=== PATIENT | female | born 1980 | race Caucasian/White ===

== ENCOUNTER 2016-10-12 10:59 | Emergency (ER) | payer OTHER ==
[~2016-10-12] VITALS: Ht 170.2 cm; Wt 86.2 kg
[~2016-10-12 10:59] MED LIST: COLA100C PO; MOM30SS PO; MOTR200T44 PO; PRENTAB40 PO; TYLE167L PO
--- NOTE | 2016-10-12 12:29 | REP ---
LEFT HUMERUS: Two views. HISTORY: Injury in a fall. FINDINGS: Two views of the left humerus demonstrate normal bones, joints, and soft tissues. No fracture or subluxation is seen. IMPRESSION: No fracture noted. Signed by Yan Bradley MD 10/12/2016 01:43 P
--- NOTE | 2016-10-12 12:30 | REP ---
Left knee series: Five views. History: Injury in a fall. Findings: Five views of the left knee demonstrate normal bones, joints, and soft tissues. No fracture or subluxation is seen. Impression: Negative views of the left knee. Signed by Yan Bradley MD 10/12/2016 01:43 P
[2016-10-12 12:44] LABS: ANION GAP 12 MEQ/L (8-16); BLOOD UREA NITROGEN 6 MG/DL (7-18); CALCIUM LEVEL 9.2 MG/DL (8.5-10.1); CARBON DIOXIDE LEVEL 22 MEQ/L (21-32); CHLORIDE LEVEL 104 MEQ/L (98-107); CREATININE FOR GFR 0.52 MG/DL (0.55-1.02); GLOMERULAR FILTRATION RATE > 60.0 (>60); GLUCOSE, FASTING 74 MG/DL (70-105); POTASSIUM SERUM 3.7 MEQ/L (3.5-5.1); SODIUM LEVEL 138 MEQ/L (136-145)
[2016-10-12 12:48] LABS: BASO # 0.1 K/mm3 (0.0-0.2); BASO % 0.7 % (0.0-1.0); EOS # 0.1 K/mm3 (0.0-0.50); EOS % 0.5 % (0.0-3.0); LARGE UNSTAINED CELL # 0.2 K/mm3 (0.0-0.4); LARGE UNSTAINED CELL % 1.2 % (0.0-4.0); LYMPH # 1.1 K/mm3 (1.5-4.5); LYMPH % 7.2 % (24.0-44.0); MEAN CORPUSCULAR HEMOGLOBIN 29.8 pg (27.0-33.0); MEAN CORPUSCULAR HGB CONC 35.7 g/dl (32.0-36.5); MEAN CORPUSCULAR VOLUME 83.6 fl (80.0-96.0); MONO # 0.8 K/mm3 (0.0-0.8); MONO % 5.5 % (0.0-5.0); NEUTROPHILS # 12.8 K/mm3 (1.8-7.7); NEUTROPHILS % 84.9 % (36.0-66.0); PLATELET COUNT, AUTOMATED 268 k/mm3 (150-450); RED CELL DISTRIBUTION WIDTH 12.9 % (11.5-14.5); WHITE BLOOD COUNT 15.1 K/mm3 (4.0-10.0)
--- NOTE | 2016-10-12 13:02 | REP ---
Left forearm: Two views. History: Injury in a fall. Findings: AP and lateral views of the left forearm demonstrate irregularity in the radial head along its articular margin raising question of a radial head fracture. Elbow views are recommended. No other radial or ulnar fracture is seen. Impression: Suspect intra-articular fracture of the proximal radial head. Recommend elbow views. Signed by Yan Bradley MD 10/12/2016 01:43 P
--- NOTE | 2016-10-12 13:13 | REP ---
LIMITED OB ULTRASOUND: Real-time sonographic evaluation of the gravid uterus performed. There is a single living intrauterine gestation with an estimated gestational age of 32 weeks 2 days, EDC 12/05/2016. Cervix is closed and measures 3.4 cm in length. heart rate 143 beats per minute. Amniotic fluid within normal limits, amniotic fluid index (OLIVIER) 13.8 within normal range of 8.5 - 24.3. S/d ratio 2.84 is within normal range. RI 0.65 within normal range. position is vertex. Placenta is posterior with no previa or abruption. IMPRESSION: No evidence of placenta previa or abruption. Signed by Caleb Espinal MD 10/12/2016 05:04 P
--- NOTE | 2016-10-12 13:27 | REP ---
Left elbow series: Four views. History: Injury in a fall. Findings: There are positive anterior and posterior fat pad signs at the elbow on the lateral radiograph. Four views of the elbow demonstrate an intra-articular fracture of the proximal radial head. This is slightly depressed. No ulnar fracture is seen. Oblique views demonstrate the fracture as well as a possible intra-articular bone fragment in the radial capitellar articulation. Impression: Slightly depressed intra-articular radial head fracture with hemarthrosis. Possible intra-articular bone fragment. Signed by Yan Bradley MD 10/12/2016 01:44 P
--- NOTE | 2016-10-12 13:38 | EDDOCDS ---
Physician Documentation [facility] Name: Lisa Rider Age: 36 yrs Sex: Female : 1980 Arrival Date: 10/12/2016 Time: 10:59 Bed 3 Private MD: No Pcp Disposition: 10/12/16 13:13 Hospitalization ordered by Norma Hill for Inpatient Admission. Preliminary diagnosis are related conditions, unspecified - fall, rule out placental abruption, Fall (on)(from) sidewalk curb - with left radial head fracture - with intraarticular loose, Contusion of left knee, Contusion of left shoulder, Abrasion of knee - left. - Bed requested for Admit. - Status is Inpatient Admission. js13 - Condition is Stable. - Problem is new. - Symptoms are unchanged. Historical: - Allergies: No known drug Allergies; - Home Meds: 1. Vitamin 27-0.8 mg Oral tab 1 tab once daily 2. Colace 100 mg oral cap 1 cap 2 times per day 3. ranitidine HCl 75 mg Oral tab 1 tab once daily - PMHx: none; - PSHx: cone biopsy; - Social history: Smoking status: Patient uses tobacco products, light tobacco smoker. No barriers to communication noted, The patient speaks fluent Solomon Islander, Speaks appropriately for age. - Family history: Not pertinent. - : The pt / caregiver states he / she is not on anticoagulants. Home medication list is obtained from the patient. - Exposure Risk Screening:: None identified. 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 7 in. (170.18 cm); Pain 8/10; 11:29 BP 130 / 74; Pulse 94; Resp 20; Pulse Ox 99% ; Pain 8/10; jlf 11:43 Pulse 82 MON; Pulse Ox 97% ; kc3 11:45 BP 135 / 81 (auto/); kc3 12:00 BP 111 / 75 (auto/); kc3 12:00 Pulse 90 MON; Pulse Ox 99% ; kc3 12:48 BP 116 / 70 (auto/); kc3 12:48 Pulse 91 MON; Pulse Ox 99% ; kc3 13:03 BP 113 / 71 (auto/); kc3 13:04 Pulse 89 MON; Pulse Ox 98% ; kc3 13:28 BP 102 / 59; Pulse 86; Resp 18; Temp 98.1(O); Pulse Ox 98% on R/A; Pain 7/10; kc3 11:02 Body Mass Index 29.76 (86.18 kg, 170.18 cm) jrd MDM: 11:24 Heart Tones ordered. ml 11:37 IV Saline Lock ordered. ml 11:38 Director Data Architecture/Pulse Ox/q 15 min VS ordered. ml 11:38 Rhythm Strip to chart ordered. ml 11:38 CBC with Diff Ordered. EDMS 11:38 MED Profile Ordered. EDMS 11:38 Type & Screen Ordered. EDMS 11:40 Forearm (radius/ulna) Ordered. EDMS 11:40 Knee, Complete Ordered. EDMS 11:41 Humerus Ordered. EDMS 11:43 NS 0.9% 1000 ml IV at bolus once ordered. ml 11:45 ECG WITH READING ER PHYS+CARDIAG ordered. EDMS 11:46 Fibrinogen Ordered. EDMS 11:46 Kleihauer Betke Ordered. EDMS 11:53 Obs. Limited, OLIVIER US Ordered. EDMS 12:27 Elbow, Complete Ordered. EDMS 13:04 Misc. Nursing Order ordered. ml 13:18 Financial registration complete. mm15 13:28 [facility] Payment Agreement was scanned into [employer] and attached to record. mm15 Administered Medications: 12:18 Drug: NS 0.9% 1000 ml [sodium chloride 0.9 % intravenous solution] Route: IV; Rate: kc3 bolus; Site: right antecubital; Signatures: Dispatcher [employer] EDMS Rodrick Tony MD MD ml Jessie Long RN RN hs1 Deena Pizano,VINOD RN js13 Oniel Hayes mm15 Becca Coleman,VINOD RN kc3 The chart was reviewed and I authenticate all verbal orders and agree with the evaluation and treatment provided.Corrections: (The following items were deleted from the chart) 11:42 11:38 Shoulder, complete+XR ordered. EDMS EDMS 11:53 11:48 US 1ST TRI EA ADDITIONAL GEST+US ordered. EDMS EDMS Attachments: 13:28 [facility] Payment Agreement mm15 MTDD
--- NOTE | 2016-10-12 13:38 | EDDOCDS ---
Nurse's Notes [facility] [place] Name: Lisa Rider Age: 36 yrs Sex: Female : 1980 Arrival Date: 10/12/2016 Time: 10:59 Bed 3 Private MD: No Pcp Diagnosis: related conditions, unspecified-fall, rule out placental abruption;Fall (on)(from) sidewalk curb-with left radial head fracture - with intraarticular loose;Contusion of left knee;Contusion of left shoulder;Abrasion of knee-left Presentation: 10/12 11:04 Presenting complaint: Patient states: tripped over baling twine while in [employer] Patient hs1 states fell from a standing height onto concrete floor. Patient states fell onto left wrist and shoulder where most of pain is. Also reporting pain in left knee and ankle as well as right elbow. Patient states she is 33 weeks . Denies cramping and reports feeling baby move since accident. Adult Sepsis Screening: The patient does not have new or worsening altered mentation. Patient's respiratory rate is less than 22. Systolic blood pressure is greater than 100. Patient has a qSOFA score of 0- Negative Sepsis Screen. Suicide/Homicide risk assessment- the patient denies having any suicidal and/or homicidal ideations and does not present with any other emotional, behavioral or mental health complaints. Status: Patient is not a support services specialist or dependent. Transition of care: patient was not received from another setting of care. 11:04 Acuity: ANGEL LUIS Level 3 hs1 11:04 Method Of Arrival: Walkin/Carried/Asstd hs1 Triage Assessment: 11:10 General: Appears in no apparent distress, Behavior is appropriate for age, cooperative. hs1 Pain: Location: right elbow, left tricep, left elbow, left knee and anterior aspect of left ankle Pain currently is 8 out of 10 on a pain scale. Pt Declines HIV testing. Musculoskeletal: Range of motion limited in left shoulder and left elbow. ACTUARIAL TRAINEE: 12:25 Verified kc3 Historical: - Allergies: No known drug Allergies; - Home Meds: 1. Vitamin 27-0.8 mg Oral tab 1 tab once daily 2. Colace 100 mg oral cap 1 cap 2 times per day 3. ranitidine HCl 75 mg Oral tab 1 tab once daily - PMHx: none; - PSHx: cone biopsy; - Social history: Smoking status: Patient uses tobacco products, light tobacco smoker. No barriers to communication noted, The patient speaks fluent Thai, Speaks appropriately for age. - Family history: Not pertinent. - : The pt / caregiver states he / she is not on anticoagulants. Home medication list is obtained from the patient. - Exposure Risk Screening:: None identified. Screenin:32 Screening information is obtained from the patient. Fall risk: At risk due to prior [facility] history of falls, The following interventions are performed due to a positive Fall Risk Screen: Fall Risk is added to Special Handling on the patient Summary Screen. A Fall Risk Bracelet was applied to the patient. Side Rails are placed in the up position. A Call Donovan is given with instruction to call for help when getting out of bed. Fall Alert bracelet is placed on the patient. Assistance ADL's: requires no assistance with activities of daily living. Abuse/DV Screen: The patient / caregiver reports he/she is: not in a situation that causes fear, pain or injury. Nutritional screening: No deficits noted. Advance Directives: Currently, there is no health care proxy. home support is adequate. Assessment: 11:30 General: Appears in no apparent distress, uncomfortable, Behavior is appropriate for kc3 age, cooperative. Pain: Location: left arm and left knee Pain currently is 8 out of 10 on a pain scale. Neurological: Level of Consciousness is awake, alert, obeys commands, Oriented to person, place, time. Cardiovascular: Rhythm is sinus rhythm Chest pain is denied. Respiratory: Respiratory effort is even, unlabored. Derm: Skin is pink, warm & dry. abrasion noted to left knee. Musculoskeletal: Circulation, motion, and sensation intact Range of motion limited in left shoulder. 12:24 General: Appears in no apparent distress, comfortable, Behavior is appropriate for age, kc3 cooperative. Pain: Location: left arm. Neurological: No deficits noted. Cardiovascular: Rhythm is sinus rhythm. Respiratory: Respiratory effort is even, unlabored. Derm: Skin is pink, warm & dry. 13:14 General: Appears in no apparent distress, comfortable, Behavior is appropriate for age, kc3 cooperative. Pain: Location: left shoulder. Neurological: Level of Consciousness is awake, alert, obeys commands, Oriented to person, place, time. Cardiovascular: Rhythm is sinus rhythm. Respiratory: Respiratory effort is even, unlabored. Derm: Skin is pink, warm & dry. Musculoskeletal: Circulation, motion, and sensation intact. Vital Signs: 11:02 BP 128 / 74 RA Sitting (auto/); Pulse 98; Resp 18; Temp 97.7(O); Pulse Ox 99% on R/A; jrd Weight 86.18 kg (R); Height 5 ft. 7 in. (170.18 cm); Pain 8/10; 11:29 BP 130 / 74; Pulse 94; Resp 20; Pulse Ox 99% ; Pain 8/10; jlf 11:43 Pulse 82 MON; Pulse Ox 97% ; kc3 11:45 BP 135 / 81 (auto/); kc3 12:00 BP 111 / 75 (auto/); kc3 12:00 Pulse 90 MON; Pulse Ox 99% ; kc3 12:48 BP 116 / 70 (auto/); kc3 12:48 Pulse 91 MON; Pulse Ox 99% ; kc3 13:03 BP 113 / 71 (auto/); kc3 13:04 Pulse 89 MON; Pulse Ox 98% ; kc3 13:28 BP 102 / 59; Pulse 86; Resp 18; Temp 98.1(O); Pulse Ox 98% on R/A; Pain 7/10; kc3 11:02 Body Mass Index 29.76 (86.18 kg, 170.18 cm) [facility] Vitals: 11:02 Log In Time: October 12, 2016 at 10:59. jrd 11:30 Heart Tones 145BPM. kc3 ED Course: 11:00 Patient visited by Yao Rodriguez PCA. jrd 11:00 Patient moved to Waiting jrd 11:01 No Pcp is Private Physician. jrd 11:02 Patient visited by Yao Rodriguez PCA. jrd 11:07 Triage Initiated hs1 11:17 Becca Coleman,RN is Primary Nurse. ml6 11:17 Patient moved to 3 ml6 11:29 Patient visited by Michelle Suarez PCA. jlf 11:29 Patient visited by Michelle Suarez PCA. jlf 11:32 Patient visited by Becca Coleman,VINOD. kc3 11:32 The patient / caregiver is instructed regarding the plan of care and ED course. kc3 11:36 Rodrick Tony MD is Attending Physician. ml 11:36 Patient visited by Rodrick Tony MD. ml 11:56 Patient moved to Ultrasound am10 12:10 Patient moved to 3 am10 12:16 Patient visited by Michelle Suarez PCA. jlf 12:16 Patient visited by Michelle Suarez PCA. jlf 12:16 EKG done. (by ED staff). Reviewed by Rodrick Tony MD. jlf 12:18 Type & Screen Sent. kc3 12:24 Inserted saline lock: 18 gauge in right antecubital area and blood collected. The kc3 patient tolerated the procedure well. Labs drawn. (by ED staff). Sent per order to lab. 12:25 Patient visited by Becca Coleman RN. kc3 12:58 Humerus Returned. EDMS 12:58 Knee, Complete Returned. EDMS 13:08 Patient visited by Michelle Suarez PCA. jlf 13:10 Norma Hill MD is Hospitalizing Provider. ml 13:12 Patient visited by Michelle Suarez PCA. jlf 13:12 Sling applied to left arm. Patient with positive distal sensation and brisk distal jlf capillary refill after application. 13:28 [facility] Payment Agreement was scanned into [employer] and attached to record. mm15 13:29 No procedures done that require assistance. kc3 13:32 Forearm (radius/ulna) Returned. EDMS 13:32 Obs. Limited, OLIVIER US Returned. EDMS 13:32 Elbow, Complete Returned. EDMS Administered Medications: 12:18 Drug: NS 0.9% 1000 ml [sodium chloride 0.9 % intravenous solution] Route: IV; Rate: kc3 bolus; Site: right antecubital; Order Results: Lab Order: CBC with Diff; SPEC'M 10/12/16 12:04 Test: WHITE BLOOD COUNT; Value: 15.1; Range: 4.0-10.0; Abnormal: Above high normal; Units: K/mm3; Status: F Test: RED BLOOD COUNT; Value: 4.16; Range: 4.00-5.40; Units: M/mm3; Status: F Test: HEMOGLOBIN; Value: 12.4; Range: 12.0-16.0; Units: g/dl; Status: F Test: HEMATOCRIT; Value: 34.8; Range: 36.0-47.0; Abnormal: Below low normal; Units: %; Status: F Test: MEAN CORPUSCULAR VOLUME; Value: 83.6; Range: 80.0-96.0; Units: fl; Status: F Test: MEAN CORPUSCULAR HEMOGLOBIN; Value: 29.8; Range: 27.0-33.0; Units: pg; Status: F Test: MEAN CORPUSCULAR HGB CONC; Value: 35.7; Range: 32.0-36.5; Units: g/dl; Status: F Test: RED CELL DISTRIBUTION WIDTH; Value: 12.9; Range: 11.5-14.5; Units: %; Status: F Test: PLATELET COUNT, AUTOMATED; Value: 268; Range: 150-450; Units: k/mm3; Status: F Test: NEUTROPHILS %; Value: 84.9; Range: 36.0-66.0; Abnormal: Above high normal; Units: %; Status: F Test: LYMPH %; Value: 7.2; Range: 24.0-44.0; Abnormal: Below low normal; Units: %; Status: F Test: MONO %; Value: 5.5; Range: 0.0-5.0; Abnormal: Above high normal; Units: %; Status: F Test: EOS %; Value: 0.5; Range: 0.0-3.0; Units: %; Status: F Test: BASO %; Value: 0.7; Range: 0.0-1.0; Units: %; Status: F Test: LARGE UNSTAINED CELL %; Value: 1.2; Range: 0.0-4.0; Units: %; Status: F Test: NEUTROPHILS #; Value: 12.8; Range: 1.8-7.7; Abnormal: Above high normal; Units: K/mm3; Status: F Test: LYMPH #; Value: 1.1; Range: 1.5-4.5; Abnormal: Below low normal; Units: K/mm3; Status: F Test: MONO #; Value: 0.8; Range: 0.0-0.8; Units: K/mm3; Status: F Test: EOS #; Value: 0.1; Range: 0.0-0.50; Units: K/mm3; Status: F Test: BASO #; Value: 0.1; Range: 0.0-0.2; Units: K/mm3; Status: F Test: LARGE UNSTAINED CELL #; Value: 0.2; Range: 0.0-0.4; Units: K/mm3; Status: F Lab Order: MED Profile; SPEC'M 10/12/16 12:04 Test: GLUCOSE, FASTING; Value: 74; Range: 70-105; Units: MG/DL; Status: F Test: BLOOD UREA NITROGEN; Value: 6; Range: 7-18; Abnormal: Below low normal; Units: MG/DL; Status: F Test: CREATININE FOR GFR; Value: 0.52; Range: 0.55-1.02; Abnormal: Below low normal; Units: MG/DL; Status: F Test: GLOMERULAR FILTRATION RATE; Value: > 60.0; Range: >60; Status: F Test: SODIUM LEVEL; Value: 138; Range: 136-145; Units: MEQ/L; Status: F Test: POTASSIUM SERUM; Value: 3.7; Range: 3.5-5.1; Units: MEQ/L; Status: F Test: CHLORIDE LEVEL; Value: 104; Range: 98-107; Units: MEQ/L; Status: F Test: CARBON DIOXIDE LEVEL; Value: 22; Range: 21-32; Units: MEQ/L; Status: F Test: ANION GAP; Value: 12; Range: 8-16; Units: MEQ/L; Status: F Test: CALCIUM LEVEL; Value: 9.2; Range: 8.5-10.1; Units: MG/DL; Status: F Test Note: ; Units are mL/min/1.73 m2 Chronic Kidney Disease Staging per NKF: Stage I & II GFR >=60 Normal to Mildly Decreased Stage III GFR 30-59 Moderately Decreased Stage IV GFR 15-29 Severely Decreased Stage V GFR <15 Very Little GFR Left ESRD GFR <15 on HELPER DRIVER Lab Order: Fibrinogen; SPEC'M 10/12/16 12:04 Test: FIBRINOGEN; Value: 470; Range: 221-452; Abnormal: Above high normal; Units: MG/DL; Status: F Radiology Order: Forearm (radius/ulna) Test: Forearm (radius/ulna) REASON FOR EXAMINATION: fall, 33 wks pregn; Left forearm: Two views.; ; History: Injury in a fall.; ; Findings: AP and lateral views of the left forearm demonstrate irregularity in; the radial head along its articular margin raising question of a radial head; fracture. Elbow views are recommended. No other radial or ulnar fracture is; seen.; ; Impression:; ; Suspect intra-articular fracture of the proximal radial head. Recommend elbow; views.; ; ; ; ; Unreviewed; Radiology Order: Knee, Complete Test: Knee, Complete REASON FOR EXAMINATION: 33 wks preg, fall; Left knee series: Five views.; ; History: Injury in a fall.; ; Findings: Five views of the left knee demonstrate normal bones, joints, and soft; tissues. No fracture or subluxation is seen.; ; Impression:; ; Negative views of the left knee.; ; ; ; ; Unreviewed; Radiology Order: Humerus Test: Humerus REASON FOR EXAMINATION: fall 33 wks pregn; LEFT HUMERUS:; ; Two views.; ; HISTORY: Injury in a fall.; ; FINDINGS: Two views of the left humerus demonstrate normal bones, joints, and; soft tissues. No fracture or subluxation is seen.; ; IMPRESSION:; No fracture noted.; ; ; ; ; Unreviewed; Radiology Order: Obs. Limited, OLIVIER US Test: Obs. Limited, OLIVIER US REASON FOR EXAMINATION: fall, rule palental abruption; LIMITED OB ULTRASOUND:; ; Real-time sonographic evaluation of the gravid uterus performed. There is a; single living intrauterine gestation with an estimated gestational age of 32; weeks 2 days, EDC 12/05/2016. Cervix is closed and measures 3.4 cm in length.; heart rate 143 beats per minute. Amniotic fluid within normal limits,; amniotic fluid index (OLIVIER) 13.8 within normal range of 8.5 - 24.3. S/d ratio; 2.84 is within normal range. RI 0.65 within normal range. position is; vertex. Placenta is posterior with no previa or abruption.; ; IMPRESSION:; No evidence of placenta previa or abruption.; ; Unreviewed; Radiology Order: Elbow, Complete Test: Elbow, Complete REASON FOR EXAMINATION: ro pain; Left elbow series: Four views.; ; History: Injury in a fall.; ; Findings: There are positive anterior and posterior fat pad signs at the elbow; on the lateral radiograph. Four views of the elbow demonstrate an; intra-articular fracture of the proximal radial head. This is slightly; depressed. No ulnar fracture is seen. Oblique views demonstrate the fracture as; well as a possible intra-articular bone fragment in the radial capitellar; articulation.; ; Impression:; ; Slightly depressed intra-articular radial head fracture with hemarthrosis.; Possible intra-articular bone fragment.; ; ; ; ; Unreviewed; Outcome: 13:13 Decision to Hospitalize by Provider. 13:16 Admission hand-off: Report called to VINOD Uribe on L&D. 3 13:29 Discharge Assessment: patient administered narcotics - no. The following High Risk [facility] Discharge criteria are identified: None. Admitted to L & D, accompanied by tech, via wheelchair, with chart. Condition: stable. Property :Personal belongings accompany Pt. 13:29 No special radiology studies were completed. 3 13:36 Patient left the ED. js13 Signatures: Dispatcher [employer] EDMS Rodrick Tony MD MD ml Raina Sr am10 Young Murphy, RN RN ml6 Jessie Long RN RN hs1 Denea Pizano,RN RN js13 Oniel Hayes mm15 Michelle Suarez, ENERGY AUDIT ADVISOR ENERGY AUDIT ADVISOR Yao Nascimento, ENERGY AUDIT ADVISOR ENERGY AUDIT ADVISOR Becca Fontana,RN RN kc3 MTDD
[2016-10-12] MEDS ORDERED: RANI15TA PO (13:46)
[2016-10-12] MEDS ORDERED: PREN29CH2 PO (13:46)
[2016-10-12] MEDS ORDERED: OXYC1TAB23 PO (16:23)
--- NOTE | 2016-10-12 17:38 | ECGEPIP ---
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
--- NOTE | 2016-10-14 14:37 | EDDOCDS ---
Physician Documentation [facility] Name: Lisa Rider Age: 36 yrs Sex: Female : 1980 Arrival Date: 10/12/2016 Time: 10:59 Bed 3 Private MD: No Pcp Disposition: 10/12 21:04 Critical Care:. ml Disposition: 10/12/16 13:13 Hospitalization ordered by Norma Hill for Inpatient Admission. Preliminary diagnosis are related conditions, unspecified - fall, rule out placental abruption, Fall (on)(from) sidewalk curb - with left radial head fracture - with intraarticular loose, Contusion of left knee, Contusion of left shoulder, Abrasion of knee - left. - Bed requested for Admit. - Status is Inpatient Admission. js13 - Condition is Stable. - Problem is new. - Symptoms are unchanged. Historical: - Allergies: No known drug Allergies; - Home Meds: 1. Vitamin 27-0.8 mg Oral tab 1 tab once daily 2. Colace 100 mg oral cap 1 cap 2 times per day 3. ranitidine HCl 75 mg Oral tab 1 tab once daily - PMHx: none; - PSHx: cone biopsy; - Social history: Smoking status: Patient uses tobacco products, light tobacco smoker. No barriers to communication noted, The patient speaks fluent Armenian, Speaks appropriately for age. - Family history: Not pertinent. - : The pt / caregiver states he / she is not on anticoagulants. Home medication list is obtained from the patient. - Exposure Risk Screening:: None identified. 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 7 in. (170.18 cm); Pain 8/10; 11:29 BP 130 / 74; Pulse 94; Resp 20; Pulse Ox 99% ; Pain 8/10; jlf 11:43 Pulse 82 MON; Pulse Ox 97% ; kc3 11:45 BP 135 / 81 (auto/); kc3 12:00 BP 111 / 75 (auto/); kc3 12:00 Pulse 90 MON; Pulse Ox 99% ; kc3 12:48 BP 116 / 70 (auto/); kc3 12:48 Pulse 91 MON; Pulse Ox 99% ; kc3 13:03 BP 113 / 71 (auto/); kc3 13:04 Pulse 89 MON; Pulse Ox 98% ; kc3 13:28 BP 102 / 59; Pulse 86; Resp 18; Temp 98.1(O); Pulse Ox 98% on R/A; Pain 7/10; kc3 11:02 Body Mass Index 29.76 (86.18 kg, 170.18 cm) jrd MDM: 11:24 Heart Tones ordered. ml 11:37 IV Saline Lock ordered. ml 11:38 Cold Food Packer/Pulse Ox/q 15 min VS ordered. ml 11:38 Rhythm Strip to chart ordered. ml 11:38 CBC with Diff Ordered. EDMS 11:38 MED Profile Ordered. EDMS 11:38 Type & Screen Ordered. EDMS 11:40 Forearm (radius/ulna) Ordered. EDMS 11:40 Knee, Complete Ordered. EDMS 11:41 Humerus Ordered. EDMS 11:43 NS 0.9% 1000 ml IV at bolus once ordered. ml 11:45 ECG WITH READING ER PHYS+CARDIAG ordered. EDMS 11:46 Fibrinogen Ordered. EDMS 11:46 Kleihauer Betke Ordered. EDMS 11:53 Obs. Limited, OLIVIER US Ordered. EDMS 12:27 Elbow, Complete Ordered. EDMS 13:04 Misc. Nursing Order ordered. ml 13:18 Financial registration complete. mm15 13:28 [facility] [place] Agreement was scanned into [employer] and attached to record. mm15 13:56 ANTIBODY IDENTIFICATION Ordered. EDMS 10/13 09:54 T-Sheet-- Draft Copy was scanned into [employer] and attached to record. gb 09:54 ECG/EKG was scanned into [employer] and attached to record. gb 09:54 Radiology Report was scanned into [employer] and attached to record. gb Administered Medications: 10/12 12:18 Drug: NS 0.9% 1000 ml [sodium chloride 0.9 % intravenous solution] Route: IV; Rate: kc3 bolus; Site: right antecubital; Critical Care Time: 21:04 Critical care time: Bedside Care: 60 minutes, Consultation: 10 minutes. Total time: 70 ml minutes Signatures: Dispatcher [employer] EDMS Rodrick Tony MD MD ml Tayler Silver, Reg Reg gb Jessie Long, RN RN hs1 Deena Pizano,VINOD RN js13 Oniel Hayes mm15 Becca Coleman,RN RN kc3 The chart was reviewed and I authenticate all verbal orders and agree with the evaluation and treatment provided.Corrections: (The following items were deleted from the chart) 11:42 11:38 Shoulder, complete+XR ordered. EDMS EDMS 11:53 11:48 US 1ST TRI EA ADDITIONAL GEST+US ordered. EDMS EDMS Attachments: 13:28 [facility] [place] Agreement mm15 10/13 09:54 T-Sheet-- Draft Copy gb 09:54 ECG/EKG gb Chart Complete MTDD
--- NOTE | 2016-10-14 14:37 | EDDOCDS ---
Nurse's Notes [facility] Name: Lisa Mao Age: 36 yrs Sex: Female : 1980 Arrival Date: 10/12/2016 Time: 10:59 Bed 3 Private MD: No Pcp Diagnosis: related conditions, unspecified-fall, rule out placental abruption;Fall (on)(from) sidewalk curb-with left radial head fracture - with intraarticular loose;Contusion of left knee;Contusion of left shoulder;Abrasion of knee-left Presentation: 10/12 11:04 Presenting complaint: Patient states: tripped over baling twine while in [place]. Patient hs1 states fell from a standing height onto concrete floor. Patient states fell onto left wrist and shoulder where most of pain is. Also reporting pain in left knee and ankle as well as right elbow. Patient states she is 33 weeks . Denies cramping and reports feeling baby move since accident. Adult Sepsis Screening: The patient does not have new or worsening altered mentation. Patient's respiratory rate is less than 22. Systolic blood pressure is greater than 100. Patient has a qSOFA score of 0- Negative Sepsis Screen. Suicide/Homicide risk assessment- the patient denies having any suicidal and/or homicidal ideations and does not present with any other emotional, behavioral or mental health complaints. Status: Patient is not a automotive service professional or dependent. Transition of care: patient was not received from another setting of care. 11:04 Acuity: ANGEL LUIS Level 3 hs1 11:04 Method Of Arrival: Walkin/Carried/Asstd hs1 Triage Assessment: 11:10 General: Appears in no apparent distress, Behavior is appropriate for age, cooperative. hs1 Pain: Location: right elbow, left tricep, left elbow, left knee and anterior aspect of left ankle Pain currently is 8 out of 10 on a pain scale. Pt Declines HIV testing. Musculoskeletal: Range of motion limited in left shoulder and left elbow. 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 Vitamin 27-0.8 mg Oral tab 1 tab once daily 2. Colace 100 mg oral cap 1 cap 2 times per day 3. ranitidine HCl 75 mg Oral tab 1 tab once daily - PMHx: none; - PSHx: cone biopsy; - Social history: Smoking status: Patient uses tobacco products, light tobacco smoker. No barriers to communication noted, The patient speaks fluent Tajik, Speaks appropriately for age. - Family history: Not pertinent. - : The pt / caregiver states he / she is not on anticoagulants. Home medication list is obtained from the patient. - Exposure Risk Screening:: None identified. Screenin:32 Screening information is obtained from the patient. Fall risk: At risk due to prior [facility] history of falls, The following interventions are performed due to a positive Fall Risk Screen: Fall Risk is added to Special Handling on the patient Summary Screen. A Fall Risk Bracelet was applied to the patient. Side Rails are placed in the up position. A Call Donovan is given with instruction to call for help when getting out of bed. Fall Alert bracelet is placed on the patient. Assistance ADL's: requires no assistance with activities of daily living. Abuse/DV Screen: The patient / caregiver reports he/she is: not in a situation that causes fear, pain or injury. Nutritional screening: No deficits noted. Advance Directives: Currently, there is no health care proxy. home support is adequate. Assessment: 11:30 General: Appears in no apparent distress, uncomfortable, Behavior is appropriate for kc3 age, cooperative. Pain: Location: left arm and left knee Pain currently is 8 out of 10 on a pain scale. Neurological: Level of Consciousness is awake, alert, obeys commands, Oriented to person, place, time. Cardiovascular: Rhythm is sinus rhythm Chest pain is denied. Respiratory: Respiratory effort is even, unlabored. Derm: Skin is pink, warm & dry. abrasion noted to left knee. Musculoskeletal: Circulation, motion, and sensation intact Range of motion limited in left shoulder. 12:24 General: Appears in no apparent distress, comfortable, Behavior is appropriate for age, kc3 cooperative. Pain: Location: left arm. Neurological: No deficits noted. Cardiovascular: Rhythm is sinus rhythm. Respiratory: Respiratory effort is even, unlabored. Derm: Skin is pink, warm & dry. 13:14 General: Appears in no apparent distress, comfortable, Behavior is appropriate for age, kc3 cooperative. Pain: Location: left shoulder. Neurological: Level of Consciousness is awake, alert, obeys commands, Oriented to person, place, time. Cardiovascular: Rhythm is sinus rhythm. Respiratory: Respiratory effort is even, unlabored. Derm: Skin is pink, warm & dry. Musculoskeletal: Circulation, motion, and sensation intact. Vital Signs: 11:02 BP 128 / 74 RA Sitting (auto/); Pulse 98; Resp 18; Temp 97.7(O); Pulse Ox 99% on R/A; jrd Weight 86.18 kg (R); Height 5 ft. 7 in. (170.18 cm); Pain 8/10; 11:29 BP 130 / 74; Pulse 94; Resp 20; Pulse Ox 99% ; Pain 8/10; jlf 11:43 Pulse 82 MON; Pulse Ox 97% ; kc3 11:45 BP 135 / 81 (auto/); kc3 12:00 BP 111 / 75 (auto/); kc3 12:00 Pulse 90 MON; Pulse Ox 99% ; kc3 12:48 BP 116 / 70 (auto/); kc3 12:48 Pulse 91 MON; Pulse Ox 99% ; kc3 13:03 BP 113 / 71 (auto/); kc3 13:04 Pulse 89 MON; Pulse Ox 98% ; kc3 13:28 BP 102 / 59; Pulse 86; Resp 18; Temp 98.1(O); Pulse Ox 98% on R/A; Pain 7/10; kc3 11:02 Body Mass Index 29.76 (86.18 kg, 170.18 cm) [facility] Vitals: 11:02 Log In Time: October 12, 2016 at 10:59. jrd 11:30 Heart Tones 145BPM. kc3 ED Course: 11:00 Patient visited by Yao Rodriguez PCA. jrd 11:00 Patient moved to Waiting jrd 11:01 No Pcp is Private Physician. jrd 11:02 Patient visited by Yao Rodriguez PCA. jrd 11:07 Triage Initiated hs1 11:17 Becca Coleman,RN is Primary Nurse. ml6 11:17 Patient moved to 3 ml6 11:29 Patient visited by Michelle Suarez PCA. jlf 11:29 Patient visited by Michelle Suarez PCA. jlf 11:32 Patient visited by Becca Coleman,VINOD. kc3 11:32 The patient / caregiver is instructed regarding the plan of care and ED course. kc3 11:36 Rodrick Tony MD is Attending Physician. ml 11:36 Patient visited by Rodrick Tony MD. ml 11:56 Patient moved to Ultrasound am10 12:10 Patient moved to 3 am10 12:16 Patient visited by Michelle Suarez PCA. jlf 12:16 Patient visited by Michelle Suarez PCA. jlf 12:16 EKG done. (by ED staff). Reviewed by Rodrick Tony MD. jlf 12:18 Type & Screen Sent. kc3 12:24 Inserted saline lock: 18 gauge in right antecubital area and blood collected. The kc3 patient tolerated the procedure well. Labs drawn. (by ED staff). Sent per order to lab. 12:25 Patient visited by Becca Coleman RN. kc3 12:58 Humerus Returned. EDMS 12:58 Knee, Complete Returned. EDMS 13:08 Patient visited by Michelle Suarez PCA. jlf 13:10 Norma Hill MD is Hospitalizing Provider. ml 13:12 Patient visited by Michelle Suarez PCA. jlf 13:12 Sling applied to left arm. Patient with positive distal sensation and brisk distal jlf capillary refill after application. 13:28 [facility] [place] Agreement was scanned into [employer] and attached to record. mm15 13:29 No procedures done that require assistance. kc3 13:32 Forearm (radius/ulna) Returned. EDMS 13:32 Obs. Limited, OLIVIER US Returned. EDMS 13:32 Elbow, Complete Returned. EDMS 17:50 EKG-ADULT Returned. EDMS 10/13 09:54 T-Sheet-- Draft Copy was scanned into [employer] and attached to record. gb 09:54 ECG/EKG was scanned into [employer] and attached to record. gb 09:54 Radiology Report was scanned into [employer] and attached to record. gb Administered Medications: 10/12 12:18 Drug: NS 0.9% 1000 ml [sodium chloride 0.9 % intravenous solution] Route: IV; Rate: kc3 bolus; Site: right antecubital; Order Results: Lab Order: CBC with Diff; SPEC'M 10/12/16 12:04 Test: WHITE BLOOD COUNT; Value: 15.1; Range: 4.0-10.0; Abnormal: Above high normal; Units: K/mm3; Status: F Test: RED BLOOD COUNT; Value: 4.16; Range: 4.00-5.40; Units: M/mm3; Status: F Test: HEMOGLOBIN; Value: 12.4; Range: 12.0-16.0; Units: g/dl; Status: F Test: HEMATOCRIT; Value: 34.8; Range: 36.0-47.0; Abnormal: Below low normal; Units: %; Status: F Test: MEAN CORPUSCULAR VOLUME; Value: 83.6; Range: 80.0-96.0; Units: fl; Status: F Test: MEAN CORPUSCULAR HEMOGLOBIN; Value: 29.8; Range: 27.0-33.0; Units: pg; Status: F Test: MEAN CORPUSCULAR HGB CONC; Value: 35.7; Range: 32.0-36.5; Units: g/dl; Status: F Test: RED CELL DISTRIBUTION WIDTH; Value: 12.9; Range: 11.5-14.5; Units: %; Status: F Test: PLATELET COUNT, AUTOMATED; Value: 268; Range: 150-450; Units: k/mm3; Status: F Test: NEUTROPHILS %; Value: 84.9; Range: 36.0-66.0; Abnormal: Above high normal; Units: %; Status: F Test: LYMPH %; Value: 7.2; Range: 24.0-44.0; Abnormal: Below low normal; Units: %; Status: F Test: MONO %; Value: 5.5; Range: 0.0-5.0; Abnormal: Above high normal; Units: %; Status: F Test: EOS %; Value: 0.5; Range: 0.0-3.0; Units: %; Status: F Test: BASO %; Value: 0.7; Range: 0.0-1.0; Units: %; Status: F Test: LARGE UNSTAINED CELL %; Value: 1.2; Range: 0.0-4.0; Units: %; Status: F Test: NEUTROPHILS #; Value: 12.8; Range: 1.8-7.7; Abnormal: Above high normal; Units: K/mm3; Status: F Test: LYMPH #; Value: 1.1; Range: 1.5-4.5; Abnormal: Below low normal; Units: K/mm3; Status: F Test: MONO #; Value: 0.8; Range: 0.0-0.8; Units: K/mm3; Status: F Test: EOS #; Value: 0.1; Range: 0.0-0.50; Units: K/mm3; Status: F Test: BASO #; Value: 0.1; Range: 0.0-0.2; Units: K/mm3; Status: F Test: LARGE UNSTAINED CELL #; Value: 0.2; Range: 0.0-0.4; Units: K/mm3; Status: F Lab Order: MED Profile; SPEC'M 10/12/16 12:04 Test: GLUCOSE, FASTING; Value: 74; Range: 70-105; Units: MG/DL; Status: F Test: BLOOD UREA NITROGEN; Value: 6; Range: 7-18; Abnormal: Below low normal; Units: MG/DL; Status: F Test: CREATININE FOR GFR; Value: 0.52; Range: 0.55-1.02; Abnormal: Below low normal; Units: MG/DL; Status: F Test: GLOMERULAR FILTRATION RATE; Value: > 60.0; Range: >60; Status: F Test: SODIUM LEVEL; Value: 138; Range: 136-145; Units: MEQ/L; Status: F Test: POTASSIUM SERUM; Value: 3.7; Range: 3.5-5.1; Units: MEQ/L; Status: F Test: CHLORIDE LEVEL; Value: 104; Range: 98-107; Units: MEQ/L; Status: F Test: CARBON DIOXIDE LEVEL; Value: 22; Range: 21-32; Units: MEQ/L; Status: F Test: ANION GAP; Value: 12; Range: 8-16; Units: MEQ/L; Status: F Test: CALCIUM LEVEL; Value: 9.2; Range: 8.5-10.1; Units: MG/DL; Status: F Test Note: ; Units are mL/min/1.73 m2 Chronic Kidney Disease Staging per NKF: Stage I & II GFR >=60 Normal to Mildly Decreased Stage III GFR 30-59 Moderately Decreased Stage IV GFR 15-29 Severely Decreased Stage V GFR <15 Very Little GFR Left ESRD GFR <15 on AIR BRUSH ARTIST Lab Order: Type & Screen; SPEC'M 10/12/16 12:04 Test: BLOOD TYPE; Value: A NEG; Status: F Test: AB SCREEN (INDIRECT MADELIN)GEL; Value: POSITIVE; Status: F Lab Order: Kleihauer Betke; SPEC'M 10/12/16 12:04 Test: DEX (KLEIHAUER BETKE); Value: 0.0000; Units: RATIO; Status: F Test Note: ; No cells seen. Lab Order: Fibrinogen; SPEC'M 10/12/16 12:04 Test: FIBRINOGEN; Value: 470; Range: 221-452; Abnormal: Above high normal; Units: MG/DL; Status: F Lab Order: ANTIBODY IDENTIFICATION; SPEC'M 10/12/16 12:04 Test: ANTIBODY IDENTIFICATION; Value: Anti-D; Status: F Radiology Order: Forearm (radius/ulna) Test: Forearm (radius/ulna) REASON FOR EXAMINATION: fall, 33 wks pregn; Left forearm: Two views.; ; History: Injury in a fall.; ; Findings: AP and lateral views of the left forearm demonstrate irregularity in; the radial head along its articular margin raising question of a radial head; fracture. Elbow views are recommended. No other radial or ulnar fracture is; seen.; ; Impression:; ; Suspect intra-articular fracture of the proximal radial head. Recommend elbow; views.; ; ; Signed by; Yan Bradley MD 10/12/2016 01:43 P; Radiology Order: Knee, Complete Test: Knee, Complete REASON FOR EXAMINATION: 33 wks preg, fall; Left knee series: Five views.; ; History: Injury in a fall.; ; Findings: Five views of the left knee demonstrate normal bones, joints, and soft; tissues. No fracture or subluxation is seen.; ; Impression:; ; Negative views of the left knee.; ; ; Signed by; Yan Bradley MD 10/12/2016 01:43 P; Radiology Order: Humerus Test: Humerus REASON FOR EXAMINATION: fall 33 wks pregn; LEFT HUMERUS:; ; Two views.; ; HISTORY: Injury in a fall.; ; FINDINGS: Two views of the left humerus demonstrate normal bones, joints, and; soft tissues. No fracture or subluxation is seen.; ; IMPRESSION: No fracture noted.; ; ; Signed by; Yan Bradley MD 10/12/2016 01:43 P; Radiology Order: EKG-ADULT Test: EKG-ADULT REASON FOR EXAMINATION: dizzy; Stationary ECG Study; [facility] - ED; ; Test Date: 2016-10-12; Pat Name: LISA MAO Department:; Room: -; Gender: F Intervention Specialist: mahesh; : 1980 Requested By: Rodrick Tony; Order Number: [id number] Reading MD: Tien Camejo; Measurements; Intervals Hardy; Rate: 91 P: 61; NM: 159 QRS: -9; QRSD: 96 T: 16; QT: 353; QTc: 436; Interpretive Statements; SINUS RHYTHM; LOW QRS VOLTAGE IN PRECORDIAL LEADS; NO PRIORS; Electronically Signed On 10-12-2016 17:37:32 EST by Tien Camejo; Radiology Order: Obs. Limited, OLIVIER US Test: Obs. Limited, OLIVIER US REASON FOR EXAMINATION: fall, rule palental abruption; LIMITED OB ULTRASOUND:; ; Real-time sonographic evaluation of the gravid uterus performed. There is a; single living intrauterine gestation with an estimated gestational age of 32; weeks 2 days, EDC 12/05/2016. Cervix is closed and measures 3.4 cm in length.; heart rate 143 beats per minute. Amniotic fluid within normal limits,; amniotic fluid index (OLIVIER) 13.8 within normal range of 8.5 - 24.3. S/d ratio; 2.84 is within normal range. RI 0.65 within normal range. position is; vertex. Placenta is posterior with no previa or abruption.; ; IMPRESSION:; ; No evidence of placenta previa or abruption.; ; ; Signed by; Caleb Espinal MD 10/12/2016 05:04 P; Radiology Order: Elbow, Complete Test: Elbow, Complete REASON FOR EXAMINATION: ro pain; Left elbow series: Four views.; ; History: Injury in a fall.; ; Findings: There are positive anterior and posterior fat pad signs at the elbow; on the lateral radiograph. Four views of the elbow demonstrate an; intra-articular fracture of the proximal radial head. This is slightly; depressed. No ulnar fracture is seen. Oblique views demonstrate the fracture as; well as a possible intra-articular bone fragment in the radial capitellar; articulation.; ; Impression:; ; Slightly depressed intra-articular radial head fracture with hemarthrosis.; Possible intra-articular bone fragment.; ; ; Signed by; Yan Bradley MD 10/12/2016 01:44 P; Outcome: 13:13 Decision to Hospitalize by Provider. 13:16 Admission hand-off: Report called to VINOD Uribe on L&D. [facility] 13:29 Discharge Assessment: patient administered narcotics - no. The following High Risk [facility] Discharge criteria are identified: None. Admitted to L & D, accompanied by tech, via wheelchair, with chart. Condition: stable. Property :Personal belongings accompany Pt. 13:29 No special radiology studies were completed. 3 13:36 Patient left the ED. js13 Signatures: Dispatcher [employer] EDMS Rodrick Tony MD MD ml Adrianne, Tayler, Reg Reg gb Raina Sr am10 Young Murphy, RN RN ml6 Jessie Long RN RN hs1 Deena Pizano,RN RN js13 Oniel Hayes mm15 Michelle Suarez, ASSISTANT WOMENS VOLLEYBALL COACH ASSISTANT WOMENS VOLLEYBALL COACH jlf Yao Rodriguez, ASSISTANT WOMENS VOLLEYBALL COACH ASSISTANT WOMENS VOLLEYBALL COACH d Becca Coleman,RN RN kc3 Chart Complete MTDD
--- NOTE | 2016-10-14 14:37 | EDDOCDS ---
Physician Documentation [facility] Name: Lisa Rider Age: 36 yrs Sex: Female : 1980 Arrival Date: 10/12/2016 Time: 10:59 Bed 3 Private MD: No Pcp Disposition: 10/12 21:04 Critical Care:. ml Disposition: 10/12/16 13:13 Hospitalization ordered by Norma Hill for Inpatient Admission. Preliminary diagnosis are related conditions, unspecified - fall, rule out placental abruption, Fall (on)(from) sidewalk curb - with left radial head fracture - with intraarticular loose, Contusion of left knee, Contusion of left shoulder, Abrasion of knee - left. - Bed requested for Admit. - Status is Inpatient Admission. js13 - Condition is Stable. - Problem is new. - Symptoms are unchanged. Historical: - Allergies: No known drug Allergies; - Home Meds: 1. Vitamin 27-0.8 mg Oral tab 1 tab once daily 2. Colace 100 mg oral cap 1 cap 2 times per day 3. ranitidine HCl 75 mg Oral tab 1 tab once daily - PMHx: none; - PSHx: cone biopsy; - Social history: Smoking status: Patient uses tobacco products, light tobacco smoker. No barriers to communication noted, The patient speaks fluent Japanese, Speaks appropriately for age. - Family history: Not pertinent. - : The pt / caregiver states he / she is not on anticoagulants. Home medication list is obtained from the patient. - Exposure Risk Screening:: None identified. 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 7 in. (170.18 cm); Pain 8/10; 11:29 BP 130 / 74; Pulse 94; Resp 20; Pulse Ox 99% ; Pain 8/10; jlf 11:43 Pulse 82 MON; Pulse Ox 97% ; kc3 11:45 BP 135 / 81 (auto/); kc3 12:00 BP 111 / 75 (auto/); kc3 12:00 Pulse 90 MON; Pulse Ox 99% ; kc3 12:48 BP 116 / 70 (auto/); kc3 12:48 Pulse 91 MON; Pulse Ox 99% ; kc3 13:03 BP 113 / 71 (auto/); kc3 13:04 Pulse 89 MON; Pulse Ox 98% ; kc3 13:28 BP 102 / 59; Pulse 86; Resp 18; Temp 98.1(O); Pulse Ox 98% on R/A; Pain 7/10; kc3 11:02 Body Mass Index 29.76 (86.18 kg, 170.18 cm) jrd MDM: 11:24 Heart Tones ordered. ml 11:37 IV Saline Lock ordered. ml 11:38 Doll Eye Setter/Pulse Ox/q 15 min VS ordered. ml 11:38 Rhythm Strip to chart ordered. ml 11:38 CBC with Diff Ordered. EDMS 11:38 MED Profile Ordered. EDMS 11:38 Type & Screen Ordered. EDMS 11:40 Forearm (radius/ulna) Ordered. EDMS 11:40 Knee, Complete Ordered. EDMS 11:41 Humerus Ordered. EDMS 11:43 NS 0.9% 1000 ml IV at bolus once ordered. ml 11:45 ECG WITH READING ER PHYS+CARDIAG ordered. EDMS 11:46 Fibrinogen Ordered. EDMS 11:46 Kleihauer Betke Ordered. EDMS 11:53 Obs. Limited, OLIVIER US Ordered. EDMS 12:27 Elbow, Complete Ordered. EDMS 13:04 Misc. Nursing Order ordered. ml 13:18 Financial registration complete. mm15 13:28 [facility] [place] Payment Agreement was scanned into [employer] and attached to record. mm15 13:56 ANTIBODY IDENTIFICATION Ordered. EDMS 10/13 09:54 T-Sheet-- Draft Copy was scanned into [employer] and attached to record. gb 09:54 ECG/EKG was scanned into [employer] and attached to record. gb 09:54 Radiology Report was scanned into [employer] and attached to record. gb Administered Medications: 10/12 12:18 Drug: NS 0.9% 1000 ml [sodium chloride 0.9 % intravenous solution] Route: IV; Rate: kc3 bolus; Site: right antecubital; Critical Care Time: 21:04 Critical care time: Bedside Care: 60 minutes, Consultation: 10 minutes. Total time: 70 ml minutes Signatures: Dispatcher [employer] EDMS Rodrick Tony MD MD ml Tayler Silver, Reg Reg gb Jessie Long, RN RN hs1 Deena Pizano,VINOD RN js13 Oniel Hayes mm15 Becca Coleman,RN RN kc3 The chart was reviewed and I authenticate all verbal orders and agree with the evaluation and treatment provided.Corrections: (The following items were deleted from the chart) 11:42 11:38 Shoulder, complete+XR ordered. EDMS EDMS 11:53 11:48 US 1ST TRI EA ADDITIONAL GEST+US ordered. EDMS EDMS Attachments: 13:28 [facility] [place] Payment Agreement mm15 10/13 09:54 T-Sheet-- Draft Copy gb 09:54 ECG/EKG gb Chart Complete MTDD
== END 2016-10-12 13:36 | disposition admitted as inpatient to this hospital (09) ==
LOC: M ED 10:59
DX: S52.125A Nondisplaced fracture of head of left radius, initial encounter for closed fracture (principal); S80.02XA Contusion of left knee, initial encounter; S40.012A Contusion of left shoulder, initial encounter; W18.09XA Striking against other object with subsequent fall, initial encounter; Y92.71 Barn as the place of occurrence of the external cause; Y93.89 Activity, other specified; Y99.8 Other external cause status; O99.333 Smoking (tobacco) complicating pregnancy, third trimester; O09.523 Supervision of elderly multigravida, third trimester; Z79.899 Other long term (current) drug therapy; Z3A.32 32 weeks gestation of pregnancy

== ENCOUNTER 2016-10-12 13:43 | Outpatient (CLI) | payer OTHER ==
[~2016-10-12] VITALS: Ht 170.2 cm; Wt 86.2 kg
[2016-10-12] MEDS ORDERED: PREN29CH2 PO (13:46)
[2016-10-12] MEDS ORDERED: RANI15TA PO (13:46)
[2016-10-12] MEDS ORDERED: OXYC1TAB23 PO (16:23)
[2016-10-12] MEDS ORDERED: PERCOCET 5MG/325MG TAB PO PRN (16:30)
== END 2016-10-12 14:25 | disposition home or self-care (01) ==
LOC: M LDO 13:43
PROVIDERS: ATTEND Advanced Practice Midwife
DX: Z03.89 Encounter for observation for other suspected diseases and conditions ruled out (principal); S42.402A Unspecified fracture of lower end of left humerus, initial encounter for closed fracture; W19.XXXA Unspecified fall, initial encounter; Y92.71 Barn as the place of occurrence of the external cause; Y93.9 Activity, unspecified; Y99.9 Unspecified external cause status; O09.513 Supervision of elderly primigravida, third trimester; Z3A.33 33 weeks gestation of pregnancy

== ENCOUNTER → 2016-11-09 | Outpatient (REF) | payer OTHER ==
[~2016-11-09] MED LIST changes: +OXYC1TAB23 PO; +PREN29CH2 PO; +RANI15TA PO
== END ==
LOC: M LAB REF 12:53
PROVIDERS: ATTEND Specialist
DX: Z34.83 Encounter for supervision of other normal pregnancy, third trimester (principal); Z36 Encounter for antenatal screening of mother; Z3A.00 Weeks of gestation of pregnancy not specified

== ENCOUNTER 2016-11-29 16:29 | Inpatient (IN) | payer OTHER ==
[2016-11-29] VITALS (7 sets, daily range): BP systolic 98–125; BP diastolic 55–70
[~2016-11-29] VITALS: Ht 170.2 cm; Wt 90.0 kg
[2016-11-29] MEDS ORDERED: AMPICILLIN SOD 2 GM in D5W MINI-BAG PLUS 100 ML IV STA (17:03)
[2016-11-29 17:23] LABS: MEAN CORPUSCULAR HEMOGLOBIN 28.7 pg (27.0-33.0); MEAN CORPUSCULAR HGB CONC 34.4 g/dl (32.0-36.5); MEAN CORPUSCULAR VOLUME 83.3 fl (80.0-96.0); RED CELL DISTRIBUTION WIDTH 13.6 % (11.5-14.5); WHITE BLOOD COUNT 11.9 K/mm3 (4.0-10.0)
--- NOTE | 2016-11-29 18:05 | HPE ---
DATE OF ADMISSION: 11/29/2016 REASON FOR ADMISSION: Induction of labor. HISTORY OF PRESENT ILLNESS: This patient is a 36-year-old 5, para 3, who presents at 39 weeks and one day estimated gestational age for an elective induction of labor. Her course has been unremarkable. She initiated care in the first trimester and has been appropriate throughout. PAST MEDICAL HISTORY: None. PAST SURGICAL HISTORY: She has had a cone biopsy. PAST OBSTETRICAL HISTORY: She is a 5, para 3. She has had three term vaginal deliveries. She is proven to 7-1/2 pounds. Her last two deliveries were precipitous deliveries of an hour and less than an hour. SOCIAL HISTORY: Denies any alcohol, tobacco or drug use during the . MEDICATIONS: vitamins, Zantac, Colace. ALLERGIES: No known drug allergies. PHYSICAL EXAMINATION: Vital signs are stable. She is afebrile. She is category heart rate tracing. GENERAL APPEARANCE: Is well appearing. No acute distress. CARDIOVASCULAR: Heart in regular rate and rhythm. CHEST: Lungs are clear to auscultation bilaterally. ABDOMEN: Soft, gravid, nontender. Estimated weight (EFW) 3400 grams. Cervix 1 dm dilated, 50% effaced, -3 station. LABORATORY DATA: Blood type A negative, antibody screen negative. Rubella immune. RPR nonreactive. HIV is negative. Hepatitis C is nonreactive. She has a normal one-hour Glucola of 112. ASSESSMENT: 1. This patient is a 36-year-old 5, para 3, who presents at 39 weeks one day estimated gestational age by first trimester ultrasound, here for induction of labor. 2. Reassuring status. 3. Group B streptococcus (GBS) positive. PLAN: 1. Admit to labor and delivery. Complete blood count (CBC), rapid plasma reagin (RPR), type and screen. 2. Ampicillin for GBS prophylaxis. 3. The patient is a good candidate for an epidural. 4. The patient is thoroughly counseled in regards to induction of labor. I discussed medications as well as procedures performed in labor and delivery. She has also been verbally counseled and consented for emergency surgery, blood products, anesthesia, and desires to proceed with induction of labor. 5. Anticipate spontaneous vaginal delivery. 6. We will initiate her induction with 50 mcg of oral misoprostol.
[2016-11-29] MEDS: AMPICILLIN SOD 1 GM in D5W MINI-BAG PLUS 50 ML IV SCH (21:19)
[2016-11-29] MEDS ORDERED: miSOPROStol 50 MCG 1/2 TAB (S0191) As Ordered ONE (21:29)
[2016-11-29] MEDS: miSOPROStol 50 MCG 1/2 TAB (S0191) PO SCH (21:30)
[2016-11-30] VITALS (23 sets, daily range): BP systolic 92–131; BP diastolic 51–78
[2016-11-30] MEDS: AMPICILLIN SOD 1 GM in D5W MINI-BAG PLUS 50 ML IV SCH ×3 (01:30→09:23)
[2016-11-30] MEDS: miSOPROStol 50 MCG 1/2 TAB (S0191) PO SCH (01:30)
[2016-11-30] MEDS ORDERED: OXYTOCIN 30 UNITS IN 0.9% NaCl 500ML IV BAG (J2590) As Ordered ONE (01:49)
[2016-11-30] MEDS ORDERED: OXYTOCIN DRIP 30 UNITS in APPROPRIATE DILUENT 1 EA IV SCH ×2 (04:00→10:47)
[2016-11-30] MEDS ORDERED: BUTORPHANOL 2 MG/ML INJ (J0595) IV ONE (05:30)
[2016-11-30] MEDS ORDERED: PROMETHAZINE INJ 25 MG/ML VIAL (J2550) IV ONE (05:30)
[2016-11-30] MEDS: LR 1,000 ML IV SCH ×4 (05:52→19:09)
[2016-11-30] MEDS: PRENATAL VITAMIN TAB PO SCH (09:00)
[2016-11-30] MEDS: raNITIdine SYRUP 150 MG/10 ML UDC GT SCH ×2 (09:00→19:37)
[2016-11-30] MEDS ORDERED: ACETAMINOPHEN 500 MG TAB PO PRN (11:00)
[2016-11-30] MEDS ORDERED: PROMETHAZINE 25 MG TAB PO PRN (11:00)
[2016-11-30] MEDS ORDERED: DIBUCAINE 1% OINTMENT 30GM TOP PRN (11:00)
[2016-11-30] MEDS ORDERED: ONDANSETRON 4MG/2ML VIAL (J2405) IV PRN (11:00)
[2016-11-30] MEDS ORDERED: RHOGAM 300 MCG (1500 IU) INJ (J2790) IM SCH (11:00)
[2016-11-30] MEDS ORDERED: MEASLES,MUMPS,RUBELLA VACCINE INJ (MMR-II) (90707) SC SCH (11:00)
[2016-11-30] MEDS ORDERED: DOCUSATE SODIUM 100 MG CAP PO PRN (11:00)
[2016-11-30] MEDS: DOCUSATE SODIUM 100 MG CAP PO PRN ×2 (13:16→21:20)
[2016-11-30] MEDS: IBUPROFEN 800 MG TAB PO PRN ×2 (13:18→21:21)
[2016-12-01] MEDS: LR 1,000 ML IV SCH ×2 (02:47→10:47)
[2016-12-01] MEDS: IBUPROFEN 800 MG TAB PO PRN (06:23)
[2016-12-01 06:27] VITALS: BP 123/75
[2016-12-01] MEDS ORDERED: COLA100C PO (07:43)
[2016-12-01] MEDS ORDERED: ACET50TA PO (07:43)
[2016-12-01] MEDS ORDERED: IBUP-1114 PO (07:43)
[2016-12-01] MEDS: raNITIdine SYRUP 150 MG/10 ML UDC GT SCH (09:00)
[2016-12-01] MEDS: PRENATAL VITAMIN TAB PO SCH (09:08)
== END 2016-12-01 17:05 | disposition home or self-care (01) | DRG 560 ==
LOC: M LDI 16:29 → M OBS 11-30 12:46
PROVIDERS: ADMIT Obstetrics & Gynecology; ATTEND Obstetrics & Gynecology
PROC: 3E0P7GC Introduction of Other Therapeutic Substance into Female Reproductive, Via Natural or Artificial Opening (ICD-10-PCS; 2016-11-29)
PROC: 10E0XZZ Delivery of Products of Conception, External Approach (ICD-10-PCS; principal; 2016-11-30)
DX: O99.824 Streptococcus B carrier state complicating childbirth (principal); F17.210 Nicotine dependence, cigarettes, uncomplicated; O99.334 Smoking (tobacco) complicating childbirth; Z3A.39 39 weeks gestation of pregnancy; Z37.0 Single live birth

== ENCOUNTER → 2017-05-17 | Outpatient (REF) | payer OTHER ==
[~2017-05-17] MED LIST changes: +ACET50TA PO; -COLA100C PO; +COLA100C5 PO; +IBUP-1114 PO
[2017-05-17 18:52] LABS: CONTROL LINE HCG INT CTR LINE PRESENT
[2017-05-17 19:08] LABS: T UPTAKE 33 % (30-39); THYROXINE (T4) 12.6 UG/DL (4.5-12.0)
== END ==
LOC: M LAB REF 17:03
PROVIDERS: ATTEND Advanced Practice Midwife
DX: N92.6 Irregular menstruation, unspecified (principal)

== ENCOUNTER → 2017-06-11 | Outpatient (CLI) | payer OTHER ==
[2017-06-11 08:26] LABS: PROLACTIN 5.5 NG/ML
[2017-06-16 14:12] LABS: INSULIN FREE 6.6 uU/mL (.)
== END ==
LOC: M LAB 07:08
PROVIDERS: ATTEND Advanced Practice Midwife
DX: R63.5 Abnormal weight gain (principal); N92.6 Irregular menstruation, unspecified

== ENCOUNTER → 2018-02-28 | Outpatient (REF) | payer OTHER ==
[2018-02-28 18:32] LABS: ANION GAP 6 MEQ/L (8-16); BLOOD UREA NITROGEN 13 MG/DL (7-18); CALCIUM LEVEL 8.8 MG/DL (8.5-10.1); CARBON DIOXIDE LEVEL 25 MEQ/L (21-32); CHLORIDE LEVEL 110 MEQ/L (98-107); CREATININE FOR GFR 0.63 MG/DL (0.55-1.30); GLOMERULAR FILTRATION RATE > 60.0 (>60); GLUCOSE, FASTING 84 MG/DL (70-100); POTASSIUM SERUM 3.9 MEQ/L (3.5-5.1); SODIUM LEVEL 141 MEQ/L (136-145)
== END ==
LOC: M LAB REF 17:47
DX: Z13.29 Encounter for screening for other suspected endocrine disorder (principal)

== ENCOUNTER → 2018-12-16 | Outpatient (CLI) | payer OTHER ==
[~2018-12-16] MED LIST changes: -ACET50TA PO; +MAPA500T2 PO
[2018-12-16 17:37] LABS: BASO % 0.3 % (0.0-1.0); EOS # 0.2 10^3/uL (0.0-0.50); EOS % 1.9 % (0.0-3.0); HEMATOCRIT 35.6 % (36.0-47.0); HEMOGLOBIN 12.3 g/dl (12.0-15.5); LYMPH # 2.1 10^3/uL (1.5-4.5); LYMPH % 18.2 % (24.0-44.0); MEAN CORPUSCULAR HEMOGLOBIN 29.9 pg (27.0-33.0); MEAN CORPUSCULAR HGB CONC 34.6 g/dl (32.0-36.5); MEAN CORPUSCULAR VOLUME 86.6 fl (80.0-96.0); MONO # 0.6 10^3/uL (0.0-0.8); MONO % 5.2 % (0.0-5.0); NEUTROPHILS # 8.4 10^3/uL (1.8-7.7); PLATELET COUNT, AUTOMATED 240 10^3/uL (150-450); RED BLOOD COUNT 4.11 10^6/uL (4.00-5.40); WHITE BLOOD COUNT 11.3 10^3/uL (4.0-10.0)
[2018-12-16 19:05] LABS: CHLAMYDIA DNA AMPLIFICATION NEGATIVE (NEGATIVE); GC DNA AMPLIFICATION NEGATIVE (NEGATIVE)
[2018-12-19 09:40] LABS: HEPATITIS C VIRUS ABY INDEX 0.1 INDEX (<0.8); HIV 1&2 SCREEN CENTAUR NEGATIVE (NEGATIVE); RUBELLA IgG QUALITATIVE IMMUNE (IMMUNE)
== END ==
LOC: M SMT 14:47
PROVIDERS: ATTEND Obstetrics & Gynecology
DX: Z34.81 Encounter for supervision of other normal pregnancy, first trimester (principal); Z3A.10 10 weeks gestation of pregnancy

== ENCOUNTER → 2019-02-10 | Outpatient (CLI) | payer OTHER ==
--- NOTE | 2019-02-10 13:28 | REP ---
OB ULTRASOUND: Real-time sonographic evaluation of the gravid uterus performed. There is a single living intrauterine gestation, the estimated gestational age is 19 weeks 1 day, EDC 07/06/2019. Today's measurements indicate appropriate growth. BPD 43 mm = 19 weeks 0 days, 49th percentile HC 164 mm = 19 weeks 1 day, 50th percentile AC 140 mm = 19 weeks 3 days, 57th percentile FL 29 mm = 19 weeks 0 days, 48th percentile HC/AC ratio 1.17 within normal range. Estimated weight 280 grams, 51st percentile. Cervix closed and measures 5.9 cm in length. heart rate 153 beats per minute. SEEN/GROSSLY UNREMARKABLE Lateral ventricles yes There are cystic changes in the right choroid plexus. Posterior fossa yes Upper lip yes Four-chamber heart yes LVOT yes RVOT yes Stomach yes Cord insertion yes Three vessel cord yes Kidneys yes Bladder yes Spine no position: Transverse with head toward the maternal left side. Placenta: Posterior and grade 0 with no previa or abruption. Amniotic fluid: Within normal limits. Electronically Signed by Caleb Espinal MD 02/14/2019 10:00 A
== END ==
LOC: M RAD 11:28
PROVIDERS: ATTEND Advanced Practice Midwife
DX: O09.522 Supervision of elderly multigravida, second trimester (principal); Z3A.19 19 weeks gestation of pregnancy

== ENCOUNTER → 2019-03-16 | Outpatient (CLI) | payer OTHER ==
--- NOTE | 2019-03-16 11:16 | REP ---
Clinical: Anatomical evaluation. Comparison: 02/10/2019 . Findings: Examination demonstrates a single live intrauterine in cephalic presentation. motion is identified by technologist. Placenta is noted right fundal and grade one without evidence for placenta previa or abruption. Amniotic fluid volume is normal. Cervix measures 6.9 cm in length and appears closed. No evidence for nuchal cord. Gestational age by LMP 24 weeks 0 days with EVY 07/06/2019 . Gestational age by current measurements 24 weeks 3 days with EVY 07/03/2019 . FHR equals 136 beats per minute. Estimated weight 707 grams ( 60th percentile). Anatomical assessment demonstrates normal structures including cranium, choroid plexus, cavum, cerebellum/posterior fossa, facial features, lungs, four-chamber heart/ventricular outflow tracts, diaphragm, stomach, cord insertion/three-vessel cord, kidneys/bladder, spine, and extremities. Impression: 1. Single live intrauterine in cephalic presentation demonstrating appropriate interval growth. 2. In conjunction with prior examination anatomical assessment is complete and normal. No gross abnormalities are identified. Electronically Signed by Tian Saleh MD 03/16/2019 11:07 A
== END ==
LOC: M RAD 09:26
PROVIDERS: ATTEND Advanced Practice Midwife
DX: O09.522 Supervision of elderly multigravida, second trimester (principal); Z3A.24 24 weeks gestation of pregnancy

== ENCOUNTER → 2019-03-30 | Outpatient (CLI) | payer OTHER ==
[2019-03-30 14:35] LABS: BASO % 0.2 % (0.0-1.0); EOS # 0.2 10^3/uL (0.0-0.50); HEMATOCRIT 33.4 % (36.0-47.0); HEMOGLOBIN 11.2 g/dl (12.0-15.5); LYMPH # 1.7 10^3/uL (1.5-4.5); LYMPH % 17.1 % (24.0-44.0); MEAN CORPUSCULAR HEMOGLOBIN 30.2 pg (27.0-33.0); MEAN CORPUSCULAR HGB CONC 33.5 g/dl (32.0-36.5); MONO # 0.6 10^3/uL (0.0-0.8); MONO % 5.5 % (0.0-5.0); NEUTROPHILS # 7.5 10^3/uL (1.8-7.7); NEUTROPHILS % 74.7 % (36.0-66.0); PLATELET COUNT, AUTOMATED 224 10^3/uL (150-450); RED BLOOD COUNT 3.71 10^6/uL (4.00-5.40)
== END ==
LOC: M LAB 12:21
PROVIDERS: ATTEND Advanced Practice Midwife
DX: O09.522 Supervision of elderly multigravida, second trimester (principal); Z3A.00 Weeks of gestation of pregnancy not specified
CPT/HCPCS: 36415; 82950; 85025; 86850; 86900; 86901; J2790

== ENCOUNTER → 2019-06-08 | Outpatient (REF) | payer OTHER | LOC: M LAB REF 12:51 | PROVIDERS: ATTEND Advanced Practice Midwife | DX: Z36.85 Encounter for antenatal screening for Streptococcus B (principal); O09.523 Supervision of elderly multigravida, third trimester; Z3A.00 Weeks of gestation of pregnancy not specified ==

== ENCOUNTER → 2019-06-16 | Outpatient (CLI) | payer OTHER | LOC: M SMT 10:59 | PROVIDERS: ATTEND Advanced Practice Midwife | DX: O09.523 Supervision of elderly multigravida, third trimester (principal); Z3A.00 Weeks of gestation of pregnancy not specified ==

== ENCOUNTER 2019-06-29 08:40 | Inpatient (IN) | payer OTHER ==
[~2019-06-29] VITALS: Ht 170.2 cm; Wt 100.0 kg
[2019-06-29] VITALS (11 sets, daily range): BP systolic 103–128; BP diastolic 56–82
[2019-06-29] MEDS ORDERED: miSOPROStol 50 MCG 1/2 TAB (S0191) PO SCH (09:00)
[2019-06-29 10:43] LABS: HEMATOCRIT 35.1 % (36.0-47.0); HEMOGLOBIN 11.7 g/dl (12.0-15.5); MEAN CORPUSCULAR HEMOGLOBIN 28.9 pg (27.0-33.0); MEAN CORPUSCULAR HGB CONC 33.3 g/dl (32.0-36.5); MEAN CORPUSCULAR VOLUME 86.7 fl (80.0-96.0); PLATELET COUNT, AUTOMATED 240 10^3/uL (150-450); RED BLOOD COUNT 4.05 10^6/uL (4.00-5.40); WHITE BLOOD COUNT 10.7 10^3/uL (4.0-10.0)
--- NOTE | 2019-06-29 11:11 | HPE ---
DATE OF ADMISSION: 06/29/2019 REASON FOR ADMISSION: Induction of labor. HISTORY OF PRESENT ILLNESS: Mrs. Rider is a 38-year-old, 6, para 4, who presents at 39 weeks zero days estimated gestational age by last menstrual period confirmed by first trimester ultrasound for induction of labor. She has had an unremarkable course. She initiated care in her first trimester and has been appropriate throughout. PAST MEDICAL HISTORY: None. PAST SURGICAL HISTORY: She has had a cone biopsy. OBSTETRICAL HISTORY: She is 6, para 4. She has been proven to 7 pounds 7 ounces. SOCIAL HISTORY: She reports smoking during the but denies any alcohol, tobacco or drug use during . PHYSICAL EXAMINATION: Vital signs are stable. She is afebrile. She has category 1 rate tracing. heart rate 120s, moderate variability. No decelerations. Spontaneous accelerations. Irregular contractions. General appearance is well appearing, no acute distress. Lungs are clear to auscultation bilaterally. Cardiovascular: Heart regular rate and rhythm. Abdomen is gravid, nontender. Estimated weight (EFW) 3100 grams. Cervical exam: She was 1 cm dilated, 50% effaced and -3 station. LABS: Her blood type is A negative. Antibody screen is negative. Rubella is immune. RPR is nonreactive. Hepatitis surface antigen negative. HIV is negative. Hepatitis C is nonreactive. Chlamydia and gonorrhea screens are negative. She had a panorama completed, which was low risk for aneuploid male. She had a normal hour Glucola. She is GBS negative. ASSESSMENT: 1. Mrs. Rider is a 38-year-old, 6, para 4, at 39 weeks zero dates by last menstrual period confirmed by first trimester ultrasound for induction of labor. 2. Reassuring status. PLAN: 1. Admit to labor and delivery. CBC, RPR, type and screen. 2. The patient has been thoroughly counseled in regards to induction of labor. We discussed medications as well as procedures performed in labor and delivery. She has had time to answer all questions, desires to proceed. 3. Will initiate her induction with 50 mcg of misoprostol.
[2019-06-29] MEDS ORDERED: LR 1,000 ML IV SCH (15:00)
[2019-06-29] MEDS ORDERED: OXYTOCIN DRIP 30 UNITS in IV 1 EA IV SCH (15:00)
[2019-06-30] MEDS ORDERED: OXYTOCIN DRIP 30 UNITS in IV 1 EA IV SCH (04:10)
[2019-06-30] MEDS ORDERED: RHOGAM 300 MCG (1500 IU) INJ (J2790) IM SCH (04:15)
[2019-06-30] MEDS ORDERED: IBUPROFEN 600 MG TAB PO PRN (04:15)
[2019-06-30] MEDS ORDERED: DOCUSATE SODIUM 100 MG CAP PO PRN (04:15)
[2019-06-30] MEDS ORDERED: ANUSOL HC CREAM 30GM TOP PRN (04:15)
[2019-06-30] MEDS ORDERED: METHYLERGONOVINE MALEATE 0.2 MG TAB PO PRN (04:15)
[2019-06-30] MEDS ORDERED: ACETAMINOPHEN 500 MG TAB PO PRN (04:15)
[2019-06-30] MEDS ORDERED: DIBUCAINE 1% OINTMENT 30GM TOP PRN (04:15)
[2019-06-30] MEDS ORDERED: ACETAMINOPHEN TAB 650MG DOSE (2X325MG) PO PRN (04:15)
[2019-06-30] MEDS ORDERED: MOM 30ML SUSPENSION UDC PO PRN (04:15)
[2019-06-30] MEDS ORDERED: MEASLES,MUMPS,RUBELLA VACCINE INJ (MMR-II) (90707) SC SCH (04:15)
[2019-06-30] MEDS: IBUPROFEN 800 MG TAB PO PRN ×2 (04:40→16:12)
--- NOTE | 2019-06-30 06:09 | DN ---
DATE OF DELIVERY: 06/30/2019 TIME OF : 0348 GENDER: Male. APGARS: 9 and 9. WEIGHT: 7 pounds 7 ounces or 3360 grams. ESTIMATED BLOOD LOSS: 300 mL. LACERATIONS: None. ANESTHESIA: None. COUNTS: Five laparotomy sponges accounted for prior to and after delivery. DELIVERY NOTE: On 06/30/2019 at 03:48, Mrs. Rider, a 38-year-old, 6, now para 5, had a spontaneous vaginal delivery of live born male , Apgars 9 and 9, weight 7 pounds 7 ounces or 3360 grams. Head was delivered occiput posterior (OP) over intact perineum. This was followed by delivery of shoulders and corpus. was handed to mom with a good cry. Cord was clamped times two and was cut by the father of baby under my direction. Placenta was then drained and delivered grossly intact. A premixed bag of 500 mL of normal saline with 30 units of Pitocin was then bolused along with uterine massage until the uterus was firm. On inspection, cervix, vagina and perineum was grossly intact and hemostatic. Mom and baby recovering in stable condition. The couple has decided to name their son
[2019-06-30 06:23] VITALS: BP 120/59
[2019-06-30] MEDS: PRENATAL VITAMINS CHEWABLE TABLET PO SCH (07:38)
[2019-06-30 18:00] VITALS: BP 128/69
[2019-07-01] MEDS: IBUPROFEN 800 MG TAB PO PRN (05:45)
[2019-07-01 05:49] VITALS: BP 113/66
[2019-07-01] MEDS: PRENATAL VITAMINS CHEWABLE TABLET PO SCH (08:52)
== END 2019-07-01 10:05 | disposition home or self-care (01) | DRG 560 ==
LOC: M LDI 08:40 → M OBS 06-30 06:05
PROVIDERS: ADMIT Obstetrics & Gynecology; ATTEND Obstetrics & Gynecology
PROC: 3E0P7GC Introduction of Other Therapeutic Substance into Female Reproductive, Via Natural or Artificial Opening (ICD-10-PCS; 2019-06-29)
PROC: 10E0XZZ Delivery of Products of Conception, External Approach (ICD-10-PCS; principal; 2019-06-30)
DX: O99.334 Smoking (tobacco) complicating childbirth (principal); Z3A.39 39 weeks gestation of pregnancy; Z37.0 Single live birth; F17.210 Nicotine dependence, cigarettes, uncomplicated

== ENCOUNTER 2019-08-14 08:12 | Day surgery (SDC) | payer OTHER ==
[~2019-08-14] VITALS: Ht 170.2 cm; Wt 87.5 kg
[~2019-08-14 08:12] MED LIST changes: +BUPIVACAINE HCL 0.25% 30 ML VIAL As Ordered ONE; +KETOROLAC 60 MG/2 ML VIAL (J1885) As Ordered ONE; +LIDOCAINE 1% MDV 20ML VIAL SQ PRN; +LIDOCAINE 2% INJ 100 MG/5 ML SDV (FOR ANES.) As Ordered ONE; +LR 1,000 ML IV SCH; +MIDAZOLAM INJ 2 MG/2 ML VIAL (J2250) As Ordered ONE; +ONDANSETRON 4MG/2ML VIAL (J2405) As Ordered ONE; +PROPOFOL 200 MG/20 ML VIAL As Ordered ONE; +ROCURONIUM BROMIDE 50 MG/5 ML VIAL As Ordered ONE; +dexameTHASONE 4 MG/ML 1ML VIAL (J1100) As Ordered ONE; +fentaNYL 250 MCG/5 ML INJECTION (J3010) As Ordered ONE
[2019-08-14 09:05] LABS: HEMATOCRIT 40.3 % (36.0-47.0); HEMOGLOBIN 13.2 g/dl (12.0-15.5); MEAN CORPUSCULAR HEMOGLOBIN 28.3 pg (27.0-33.0); MEAN CORPUSCULAR HGB CONC 32.8 g/dl (32.0-36.5); MEAN CORPUSCULAR VOLUME 86.5 fl (80.0-96.0); PLATELET COUNT, AUTOMATED 291 10^3/uL (150-450); RED BLOOD COUNT 4.66 10^6/uL (4.00-5.40); WHITE BLOOD COUNT 6.8 10^3/uL (4.0-10.0)
[2019-08-14] MEDS ORDERED: IBUP80TA PO (09:25)
[2019-08-14] MEDS ORDERED: PERC5TAB12 PO (09:26)
[2019-08-14] MEDS ORDERED: SUGAMMADEX SODIUM 500 MG/5 ML VIAL (BRIDION) As Ordered ONE (09:43)
[2019-08-14] MEDS ORDERED: ePHEDrine SULFATE 25 MG/5 ML(5MG/ML) SYRINGE As Ordered ONE (09:44)
[2019-08-14] MEDS ORDERED: PERCOCET 5MG/325MG TAB As Ordered ONE (10:17)
[2019-08-14] MEDS ORDERED: HYDROMORPHONE HCL 0.5 MG/ 0.5 ML SYRINGE (J1170 PER 1) IV PRN (10:45)
[2019-08-14] MEDS ORDERED: PERCOCET 5MG/325MG TAB PO PRN ×2 (10:45)
[2019-08-14] MEDS ORDERED: ONDANSETRON 4MG/2ML VIAL (J2405) IV PRN (10:45)
[2019-08-14] MEDS ORDERED: LR 1,000 ML IV SCH (10:45)
[2019-08-14] MEDS ORDERED: fentaNYL 100 MCG/2 ML INJECTION (J3010) IV PRN (10:45)
--- NOTE | 2019-08-14 10:51 | RO ---
DATE OF PROCEDURE: 08/14/2019 PREOPERATIVE DIAGNOSIS: Satisfied parity, undesired fertility. POSTOPERATIVE DIAGNOSIS: Satisfied parity, undesired fertility. PROCEDURE PERFORMED: Diagnostic operative laparoscopy, bilateral salpingectomy for purpose of tubal ligation. SURGEON: Dr. Norma Hill LOT BOSS: None. ANESTHESIA: General. ESTIMATED BLOOD LOSS: 5 mL. INTRAVENOUS FLUIDS: 1 liter lactated Ringer's solution. URINE OUTPUT: 200 mL. PREOPERATIVE ANTIBIOTICS: None. SPECIMENS: Bilateral fallopian tubes. OPERATIVE FINDINGS: The patient with normal-appearing uterus and bilateral adnexa. DESCRIPTION OF OPERATION: After informed was obtained and written consent was reviewed, the patient was brought to the operating room where she was placed under general endotracheal anesthesia. She was then placed in lithotomy position and was prepped and draped in the normal sterile fashion. A time out in the operating room was then performed identifying the patient, the procedure to be performed, as well as, drug allergies. Next, a bivalved speculum was placed revealing the cervix. The anterior lip of the cervix was grasped with a single-tooth tenaculum. A Hulka tenaculum was then advanced through the cervical os for a means to manipulate the uterus. The single tooth tenaculum as well as the speculum was removed. Delaney catheter was placed and set to gravity. Gloves were changed. Attention was then turned to the patient's abdomen where 0.25% Marcaine was infused in the umbilical region. This area was incised and 5 mm trocar and sleeve was advanced through this incision. The laparoscope was then replaced revealing intra-abdominal placement. A pneumoperitoneum was then obtained with CO2 gas. The abdomen was then surveyed with the above-noted findings. A port site was placed 2 cm above the pubis symphysis in the midline. This area was infused with 0.25% Marcaine. Incision was made in this area. An 8 mm trocar and sleeve advanced through this incision under direct visualization. A second port was placed and this was to the left side of the patient's abdomen. This area was infused 0.25% Marcaine and a 5 mm trocar and sleeve was advanced through this incision direct visualization. Next, the right fallopian tube was placed on traction using Harmonic Jerry scalpel device. The mesosalpinx was dissected underneath the fallopian tube and was transected at the level of the uterus. The specimen was then brought out through the port site. In a similar fashion, the left fallopian tube was dissected along the left mesosalpinx underneath the fallopian tubes and was transected at the level of the uterus. The specimen was also brought out through the port site. The surgical sites inspected and noted be hemostatic. The pneumoperitoneum was released. Trocars were removed. The three port sites were then closed #4-0 Monocryl and dressed with Dermabond. Delaney catheter was then removed. The single tooth tenaculum was removed. The patient was then taken out of lithotomy position and was awakened from general anesthesia and taken to recovery in stable condition. Counts were correct.
[2019-08-14 12:20] VITALS: BP 108/59
[2019-08-14] MEDS ORDERED: KETOROLAC 30 MG/ML VIAL (J1885) IV SCH (16:00)
== END 2019-08-14 12:20 | disposition home or self-care (01) ==
LOC: M SDC 08:12
PROVIDERS: ATTEND Obstetrics & Gynecology
DX: Z30.2 Encounter for sterilization (principal); F17.210 Nicotine dependence, cigarettes, uncomplicated; Z86.59 Personal history of other mental and behavioral disorders

== ENCOUNTER → 2019-11-08 | Outpatient (REF) | payer OTHER ==
[~2019-11-08] MED LIST changes: -BUPIVACAINE HCL 0.25% 30 ML VIAL As Ordered ONE; +IBUP80TA PO; -KETOROLAC 60 MG/2 ML VIAL (J1885) As Ordered ONE; -LIDOCAINE 1% MDV 20ML VIAL SQ PRN; -LIDOCAINE 2% INJ 100 MG/5 ML SDV (FOR ANES.) As Ordered ONE; -LR 1,000 ML IV SCH; -MIDAZOLAM INJ 2 MG/2 ML VIAL (J2250) As Ordered ONE; -ONDANSETRON 4MG/2ML VIAL (J2405) As Ordered ONE; +PERC5TAB12 PO; -PROPOFOL 200 MG/20 ML VIAL As Ordered ONE; -ROCURONIUM BROMIDE 50 MG/5 ML VIAL As Ordered ONE; -dexameTHASONE 4 MG/ML 1ML VIAL (J1100) As Ordered ONE; -fentaNYL 250 MCG/5 ML INJECTION (J3010) As Ordered ONE
== END ==
LOC: M SFHCWAGY 13:47
PROVIDERS: ATTEND Obstetrics & Gynecology
DX: Z12.4 Encounter for screening for malignant neoplasm of cervix (principal)

== ENCOUNTER → 2019-11-08 | Outpatient (CLI) | payer OTHER | LOC: M RAD 10:54 | PROVIDERS: ATTEND Obstetrics & Gynecology | DX: Z12.31 Encounter for screening mammogram for malignant neoplasm of breast (principal) ==

== ENCOUNTER → 2019-11-30 | Outpatient (CLI) | payer OTHER ==
--- NOTE | 2019-12-01 08:01 | REPMRS ---
Patient History The patient states she had a clinical breast exam in November 2019.No known family history of cancer. Digital Woman Screen Mammo: November 30, 2019 - Exam #: [id number] Bilateral CC and MLO view(s) were taken. Technologist: Deena Dodd, Technologist No prior studies available for comparison. FINDINGS: There are scattered fibroglandular densities. There is no evidence of dominant mass, architectural distortion, or grouped microcalcification typical of malignancy. 3-D tomosynthesis shows no additional findings. Assessment: BI-RADS/ACR category 1 mammogram. Negative Mammogram. Recommendation Routine screening mammogram of both breasts in 1 year (for women over age 40). This patient's Lifetime Breast Cancer RIsk is estimated at 10.5 %. This mammogram was interpreted with the aid of an FDA-approved computer-aided dectection system. Electronically Signed By: Wally Bradley MD 12/01/19 0800
== END ==
LOC: M WHC 12:57
PROVIDERS: ATTEND Obstetrics & Gynecology
DX: Z12.31 Encounter for screening mammogram for malignant neoplasm of breast (principal)

== ENCOUNTER → 2020-06-19 | Outpatient (REF) | payer OTHER | LOC: M LAB REF 15:50 | PROVIDERS: ATTEND Physician Assistant | DX: R30.0 Dysuria (principal) ==

== ENCOUNTER → 2020-12-18 | Outpatient (REF) | payer OTHER ==
[2020-12-18 17:46] LABS: BASO % 0.6 % (0.0-1.0); EOS # 0.2 10^3/uL (0.0-0.5); EOS % 3.5 % (0.0-3.0); HEMATOCRIT 39.4 % (36.0-47.0); HEMOGLOBIN 13.3 g/dl (12.0-15.5); LYMPH # 1.8 10^3/uL (1.5-5.0); LYMPH % 26.9 % (24.0-44.0); MEAN CORPUSCULAR HGB CONC 33.8 g/dl (32.0-36.5); MEAN CORPUSCULAR VOLUME 88.7 fl (80.0-96.0); MONO # 0.5 10^3/uL (0.0-0.8); MONO % 7.4 % (2.0-8.0); NEUTROPHILS # 4.1 10^3/uL (1.5-8.5); NEUTROPHILS % 61.4 % (36.0-66.0); PLATELET COUNT, AUTOMATED 256 10^3/uL (150-450); RED BLOOD COUNT 4.44 10^6/uL (4.00-5.40); WHITE BLOOD COUNT 6.6 10^3/uL (4.0-10.0)
[2020-12-18 18:10] LABS: ALBUMIN 3.8 GM/DL (3.2-5.2); ALT/SGPT 22 U/L (12-78); BILIRUBIN,TOTAL 0.2 MG/DL (0.2-1.0); BLOOD UREA NITROGEN 19 MG/DL (7-18); CALCIUM LEVEL 9.2 MG/DL (8.5-10.1); CARBON DIOXIDE LEVEL 30 MEQ/L (21-32); CHLORIDE LEVEL 109 MEQ/L (98-107); CHOLESTEROL LEVEL 163 MG/DL (<200); CHOLESTEROL RISK RATIO 2.507 (<5); CPK CREATINE PHOSPHOKINASE 48 U/L (26-192); CREATININE FOR GFR 0.98 MG/DL (0.55-1.30); GLOMERULAR FILTRATION RATE > 60.0 (>58); GLUCOSE, FASTING 79 MG/DL (70-100); HDL CHOLESTEROL 65 MG/DL (>40); LDL CHOLESTEROL 88 MG/DL (<100); MAGNESIUM LEVEL 2.1 MG/DL (1.8-2.4); NON-HDL-C 98 MG/DL; POTASSIUM SERUM 4.2 MEQ/L (3.5-5.1); SODIUM LEVEL 143 MEQ/L (136-145); THYROID STIMULATING HORMONE 0.919 uIU/ML (0.358-3.740); TRIGLYCERIDES LEVEL 50 MG/DL (<150)
[2020-12-18 18:12] LABS: FOLATE 15.7 NG/ML; TOTAL 25(OH) VITAMIN D 21.1 NG/ML (30.0-100.0); VITAMIN B12 LEVEL 562 PG/ML
[2020-12-20 16:08] LABS: ANTINUCLEAR ANTIBODIES DIRECT Negative (Negative); Lyme Disease IgG/IgM Antibodie <0.91 ISR (0.00-0.90); Lyme Disease IgM Ab Quantitati <0.80 index (0.00-0.79); TISSUE TRANSGLUTAMINASE IgA <2 U/mL (0-3)
== END ==
LOC: M LAB REF 16:18
PROVIDERS: ATTEND Pediatrics
DX: R20.2 Paresthesia of skin (principal); Z76.89 Persons encountering health services in other specified circumstances; Z13.220 Encounter for screening for lipoid disorders; M79.10 Myalgia, unspecified site

== ENCOUNTER → 2021-01-09 | Outpatient (REF) | payer OTHER ==
[2021-01-09 14:14] LABS: PERCENT SATURATION 27.4 % (13.2-45.0)
== END ==
LOC: M PLALAB 13:28
PROVIDERS: ATTEND Psychiatry & Neurology Neurology
DX: D50.9 Iron deficiency anemia, unspecified (principal)

== ENCOUNTER → 2021-07-09 | Outpatient (CLI) | payer OTHER ==
--- NOTE | 2021-07-09 11:26 | REP ---
INDICATION: NODULE. COMPARISON: None. TECHNIQUE: Real-time sonographic evaluation of the thyroid gland with Doppler FINDINGS: The right lobe of the thyroid gland measures 5.1 x 1.9 x 1.7 cm and the left lobe measures 5.6 x 1.6 x 1.5 cm. The isthmus measures between 2 and 3 mm. In the inferior pole the right lobe there is a 9 mm size nodule. In the inferior pole of the left lobe of the thyroid gland there is an 8 mm size complex nodule. IMPRESSION: 1. Mild thyromegaly. 2. Minimal findings inferior pole bilaterally <Electronically signed by Harpal Padilla > 07/09/21 2237
== END ==
LOC: M RAD 10:52
PROVIDERS: ATTEND Pediatrics
DX: E04.1 Nontoxic single thyroid nodule (principal)

== ENCOUNTER → 2022-03-02 | Outpatient (CLI) | payer OTHER | LOC: M RAD 10:16 | PROVIDERS: ATTEND Otolaryngology | DX: D44.0 Neoplasm of uncertain behavior of thyroid gland (principal) ==

== ENCOUNTER → 2022-06-02 | Outpatient (REF) | payer OTHER | LOC: M SFHCDERM 16:43 | PROVIDERS: ATTEND Nurse Practitioner Family | DX: D22.39 Melanocytic nevi of other parts of face (principal) ==

== ENCOUNTER → 2023-03-09 | Outpatient (CLI) | payer OTHER | LOC: M RAD 13:40 | PROVIDERS: ATTEND Otolaryngology | DX: D44.0 Neoplasm of uncertain behavior of thyroid gland (principal) ==